=== PATIENT | female | born 2000 | race Caucasian/White ===

== ENCOUNTER 2024-12-24 16:55 | Emergency (ER) | payer OTHER ==
[~2024-12-24] VITALS: Ht 165.1 cm; Wt 112.2 kg
--- OUTSIDE RECORDS SUMMARY | 2024-12-24 17:26 | XMS ---
PreManage Notification: ANDRE ZHU Security Manager Equipment Events No recent Security Events currently on file CRITERIA MET - [facility] - 2 Visits in 30 Days CARE PROVIDERS -, [facility] Dentist: New Car Sales Manager [facility] PHONE: [phone] -Juan- Dentist: New Car Sales Manager [facility] PHONE: [phone] [facility]PA[facility]: [facility] ([facility]) PHONE: [phone] [place] has no Care Guidelines for this patient. E.D. VISIT COUNT (12 MO.) 1 GENEVA [facility] [facility] TOTAL 2 NOTE: Visits indicate total known visits. ED/UCC VISIT TRACKING (12 MO.) 12/24/2024 16:57 GENEVA [facility] [place] TYPE: Emergency COMPLAINT: - RASH/LOWER GROIN PAIN 12/20/2024 13:50 [facility] [place] [facility] TYPE: Emergency DIAGNOSES: - Urticaria, unspecified - ANXIETY, RASH INPATIENT VISIT TRACKING (12 MO.) No inpatient visits to display in this time frame [email or web address]
[2024-12-24] MEDS ORDERED: ESCITALOPRAM OX20 MG PO (18:17)
[2024-12-24] MEDS ORDERED: PROPRANOLOL HCL10 MG PO (18:21)
[2024-12-24] MEDS ORDERED: TRAZODONE HCL50 MG PO (18:21)
[2024-12-24] MEDS ORDERED: PREDNISONE10 MG PO (18:29)
[2024-12-24] MEDS ORDERED: IBUPROFEN 600 MG TAB PO ONE (18:30)
[2024-12-24] MEDS ORDERED: ACETAMINOPHEN 500 MG TAB PO ONE (18:30)
[2024-12-24 19:13] VITALS: BP 136/74
== END 2024-12-24 19:14 | disposition home or self-care (01) ==
LOC: ED 16:55
DX: R21 Rash and other nonspecific skin eruption (principal); Z91.018 Allergy to other foods; Z79.52 Long term (current) use of systemic steroids; Z79.899 Other long term (current) drug therapy
CPT/HCPCS: 80053; 84703; 85025; 99282; A9270